=== PATIENT | female | born 1960 | race Caucasian/White ===

== ENCOUNTER 2020-03-01 21:53 | Emergency (ER) | payer BC ==
[~2020-03-01] VITALS: Ht 170.2 cm; Wt 63.0 kg
--- NOTE | 2020-03-01 22:04 | PHYS DOC ---
Past Medical History Past Medical History: No Pertinent History Past Surgical History: Cholecystectomy Drug Use: None General Adult EDM: Chief Complaint: NAUSEA/VOMITING/DIARRHA HPI: HPI: Patient is a 59 year old female who was in her normal state of health when she ate dinner at 630 tonight about an hour later she started having nausea and vomiting. No blood in her vomit. Patient then had diffuse abdominal cramping that is currently 6 out of 10 in intensity. The pain is described as cramping and nonradiating worse with palpation. Patient denies any fever chills cough diarrhea or exposure to COVID-19. Patient given for Zofran prior to arrival via EMS and is feeling somewhat better. Review of Systems: Review of Systems: Constitutional: Denies fever or chills. [] Eyes: Denies change in visual acuity. [] HENT: Denies nasal congestion or sore throat. [] Respiratory: Denies cough or shortness of breath. [] Cardiovascular: Denies chest pain or edema. [] GI: Complains abdominal pain, nausea vomiting but no diarrhea : Denies dysuria. [] Musculoskeletal: Denies back pain or joint pain. [] Integument: Denies rash. [] Neurologic: Denies headache, focal weakness or sensory changes. [] Endocrine: Denies polyuria or polydipsia. [] Lymphatic: Denies swollen glands. [] Psychiatric: Denies depression or anxiety. [] Heart Score: Risk Factors: Risk Factors: DM, Current or recent (<one month) smoker, HTN, HLP, family history of CAD, obesity. Risk Scores: Score 0 - 3: 2.5% MACE over next 6 weeks - Discharge Home Score 4 - 6: 20.3% MACE over next 6 weeks - Admit for Clinical Observation Score 7 - 10: 72.7% MACE over next 6 weeks - Early Invasive Strategies Physical Exam: PE: Constitutional: Well developed, well nourished, no acute distress, non-toxic appearance. [] HENT: Normocephalic, atraumatic, bilateral external ears normal, no trismus, nose normal. [] Eyes: PERRLA, EOMI, conjunctiva normal, no discharge. [] Neck: Normal range of motion, no tenderness, supple, no stridor. [] Cardiovascular:Heart rate regular rhythm, no murmur [] peripheral pulses intact cap refill brisk Lungs & Thorax: Bilateral breath sounds clear to auscultation [] Abdomen: Soft with diffuse tenderness to palpation without guarding or rebound, no masses, no pulsatile masses. [] Skin: Warm, dry, no erythema, no rash. [] Back: No tenderness, no CVA tenderness. [] Extremities: No tenderness, no cyanosis, no clubbing, ROM intact, no edema. [] Neurologic: Alert and oriented X 3, normal motor function, normal sensory function, no focal deficits noted. [] Psychologic: Affect normal, judgement normal, mood normal. [] Current Patient Data: Labs: Laboratory Tests Test 03/01/20 22:15 White Blood Count 11.4 x10^3/uL Red Blood Count 4.62 x10^6/uL Hemoglobin 13.9 g/dL Hematocrit 40.5 % Mean Corpuscular Volume 88 fL Mean Corpuscular Hemoglobin 30 pg Mean Corpuscular Hemoglobin Concent 34 g/dL Red Cell Distribution Width 13.7 % Platelet Count 254 x10^3/uL Neutrophils (%) (Auto) 83 % Lymphocytes (%) (Auto) 13 % Monocytes (%) (Auto) 3 % Eosinophils (%) (Auto) 1 % Basophils (%) (Auto) 1 % Neutrophils # (Auto) 9.5 x10^3/uL Lymphocytes # (Auto) 1.5 x10^3/uL Monocytes # (Auto) 0.3 x10^3/uL Eosinophils # (Auto) 0.1 x10^3/uL Basophils # (Auto) 0.1 x10^3/uL Sodium Level 140 mmol/L Potassium Level 3.4 mmol/L Chloride Level 103 mmol/L Carbon Dioxide Level 28 mmol/L Anion Gap 9 Blood Urea Nitrogen 20 mg/dL Creatinine 1.1 mg/dL Estimated GFR (Cockcroft-Gault) 51.0 BUN/Creatinine Ratio 18 Glucose Level 104 mg/dL Calcium Level 9.6 mg/dL Total Bilirubin 0.2 mg/dL Aspartate Amino Transf (AST/SGOT) 13 U/L Alanine Aminotransferase (ALT/SGPT) 17 U/L Alkaline Phosphatase 80 U/L Total Protein 8.2 g/dL Albumin 4.3 g/dL Albumin/Globulin Ratio 1.1 Lipase 143 U/L Current Medications Medications (Trade) Dose Ordered Sig/Mandy Route PRN Reason Start Time Stop Time Status Last Admin Dose Admin Sodium Chloride 1,000 ml @ 1,000 mls/hr Q1H IV 03/01/20 22:30 03/01/20 23:29 DC 03/01/20 23:16 Ondansetron HCl (Zofran) 4 mg 1X ONCE IVP 03/01/20 22:30 03/01/20 22:31 DC 03/01/20 23:16 Dicyclomine HCl (Bentyl) 20 mg 1X ONCE IM 03/01/20 22:30 03/01/20 22:31 DC 03/01/20 23:16 Iohexol (Omnipaque 300 Mg/ml) 60 ml 1X ONCE IV 03/01/20 23:00 03/01/20 23:01 DC 03/01/20 22:58 Info (CONTRAST GIVEN -- Rx MONITORING) 1 each PRN DAILY PRN MC SEE COMMENTS 03/01/20 23:00 03/03/20 22:59 Vital Signs: Vital Signs Date Time Temp Pulse Resp B/P (MAP) Pulse Ox O2 Delivery O2 Flow Rate FiO2 03/01/20 22:30 97.9 67 16 123/78 (93) 98 Room Air 97.9 EKG: EKG: [] EKG interpreted by me normal sinus rhythm with rate of 62 normal axis normal intervals normal ST segments Radiology/Procedures: Radiology/Procedures: [][facility] [address] [place] [address] IMAGING REPORT Signed PATIENT: CHERRI SARABIA ACCOUNT: [id number] : 1960 LOCATION: ER AGE: 59 SEX: F EXAM STATUS: REG ER ORD. PHYSICIAN: IDALIA SANCHES MD REASON: ABD PAIN PROCEDURE: CT ABD PELV W/ IV CONTRST ONLY CT abdomen and pelvis with contrast PQRS statement: CT scans at this facility use dose reduction including either automated exposure control, iterative reconstructions, and /or weight based radiation dosing via mA and kV modification when appropriate to reduce radiation dose to as low as reasonably achievable. Contrast: 60 mL of opaque intravenous contrast. HISTORY: Abdominal pain. Abdomen findings: Lung bases unremarkable. Sacral canal Tarlov cysts. Lumbar disc disease. There is mild intrahepatic and extrahepatic biliary ductal dilatation likely related to cholecystectomy, the common bile duct diameter is 9 mm. Liver, pancreas, spleen, kidneys and adrenal glands are unremarkable. The appendix is negative. No obstruction or inflammatory changes in GI tract. No abdominal fluid or adenopathy. Pelvis findings: Hysterectomy. Ovaries atrophic. Pelvic phleboliths which are near the areas of the distal ureters without discrete ureteral calculi. No bladder calculi. Rectum and bones are unremarkable. No pelvic fluid or adenopathy. IMPRESSION: No acute process. Appendix is negative. See above. Electronically signed by: Abdirashid Childs MD (03/01/2020 11:11 PM) [facility] [place] DICTATED and SIGNED BY: ABDIRASHID CHILDS MD DATE: 03/01/202310 Course & Med Decision Making: Course & Med Decision Making Pertinent Labs and Imaging studies reviewed. (See chart for details) [] Patient reassessed at 11:33 PM. Patient feels much better. Abdomen is soft and nontender. Patient's work-up is reassuring. Most likely the patient has food poisoning. Patient stable for discharge. All questions answered. Return precautions given. Dragon Disclaimer: Drag[employer]ume[employer] Disclaimer: This electronic medical record was generated, in whole or in part, using a voice recognition dictation system. Departure Departure Impression: Primary Impression: Nausea and vomiting Additional Impression: Abdominal pain Disposition: 01 HOME, SELF-CARE Condition: STABLE Referrals: YOUR PCP 2-3 DAYS Patient Instructions: Enteropathogenic Escherichia coli, Food Poisoning, Nausea and Vomiting Additional Instructions: EMERGENCY DEPARTMENT GENERAL DISCHARGE INSTRUCTIONS THANK YOU for coming to [facility] Emergency Department (ED) today and trusting us with your care. We trust that you had a positive experience in our Emergency Department. If you wish to speak to the department Management you can contact the trimming department blocker at . YOUR FOLLOW UP INSTRUCTIONS ARE FOLLOWS: Do you have a private doctor? If you do not have a private doctor, please ask for a resource list of physicians or clinics that may be able to assist you with follow up care. The Emergency Physician has interpreted your x-rays. The X-ray specialist will also review them. If there is a change in the findings you will be notified in 48 hours when at all possible. A lab test or lab culture may have been done, your results will be reviewed and you will be notified if you need a change in treatment. ADDITIONAL INSTRUCTIONS AND INFORMATION Your care today has been supervised by a physician who is specially trained in emergency care. Many problems require more than one evaluation for a complete diagnosis and treatment. We recommend that you schedule your follow up appointment as recommended to ensure complete treatment of your illness or injury. If you are unable to obtain follow up care and continue to have a problem, or if your condition worsens we recommend that you return to the ED. We are not able to safely determine your condition over the phone nor are we able to give sound medical advice over the phone. For these safety reasons, if you call for medical advice we will ask you to come to the ED for further evaluation If you have any questions regarding these discharge instructions please call the ED at . SAFETY INFORMATION In the interest of safety, wellness, and injury prevention; we encourage you to wear your seatbelt, if you smoke; quit smoking, and we encourage your family to use protective helmet for bicycling and other sporting events that present an increased risk for head injury. IF YOUR SYMPTOMS WORSEN OR NEW SYMPTOMS DEVELOP, OR YOU HAVE CONCERNS ABOUT YOUR CONDITION; OR IF YOUR CONDITION WORSENS WHILE YOU ARE WAITING FOR YOUR FOLLOW UP APPOINTMENT; EITHER CONTACT YOUR PRIMARY CARE DOCTOR, THE PHYSICIAN WHOSE NAME AND NUMBER YOU WERE GIVEN, OR RETURN TO THE ED IMMEDIATELY. Scripts Ondansetron Hcl (ZOFRAN) 4 Mg Tablet 1 TAB PO Q6HRS for NAUSEA, #12 TAB Prov: IDALIA SANCHES MD 03/01/20 Justicifation of Admission Dx: Justifications for Admission: Justification of Admission Dx: N/A IDALIA SANCHES MD Mar 01, 2020 22:04
[2020-03-01 22:20] LABS: BASO # 0.1 x10^3/uL (0.0-0.2); BASO % 1 % (0-3); EOS # 0.1 x10^3/uL (0.0-0.7); EOS % 1 % (0-3); HEMATOCRIT 40.5 % (36.0-47.0); HEMOGLOBIN 13.9 g/dL (12.0-15.5); LYMPH # 1.5 x10^3/uL (1.0-4.8); LYMPH % 13 % (24-48); MEAN CORPUSCULAR HEMOGLOBIN 30 pg (25-35); MEAN CORPUSCULAR HGB CONC 34 g/dL (31-37); MEAN CORPUSCULAR VOLUME 88 fL (79-100); MONO # 0.3 x10^3/uL (0.0-1.1); MONO % 3 % (0-9); NEUT # 9.5 x10^3/uL (1.8-7.7); NEUT % 83 % (31-73); PLATELET COUNT 254 x10^3/uL (140-400); RED BLOOD COUNT 4.62 x10^6/uL (3.50-5.40); RED CELL DISTRIBUTION WIDTH 13.7 % (11.5-14.5); WHITE BLOOD COUNT 11.4 x10^3/uL (4.0-11.0)
[2020-03-01] MEDS ORDERED: IV NORMAL SALINE 1000ML BAG 1,000 ML IV SCH (22:30)
[2020-03-01] MEDS ORDERED: DICYCLOMINE 20 MG/2 ML VIAL. IM ONE (22:30)
[2020-03-01] MEDS ORDERED: ONDANSETRON PF 4 MG/2 ML VIAL. IVP ONE (22:30)
[2020-03-01 22:31] LABS: CALCIUM 9.6 mg/dL (8.5-10.1); CREATININE 1.1 mg/dL (0.6-1.0); POTASSIUM 3.4 mmol/L (3.5-5.1)
[2020-03-01 22:36] LABS: ALBUMIN 4.3 g/dL (3.4-5.0); ALBUMIN/GLOBULIN RATIO 1.1 (1.0-1.7); TOTAL BILIRUBIN 0.2 mg/dL (0.2-1.0); TOTAL PROTEIN 8.2 g/dL (6.4-8.2)
[2020-03-01] MEDS ORDERED: CONTRAST GIVEN. MC PRN (23:00)
[2020-03-01] MEDS ORDERED: IOHEXOL 300 MG/ML 100ML VIAL. IV ONE (23:00)
--- NOTE | 2020-03-01 23:14 | RAD ---
CT abdomen and pelvis with contrast PQRS statement: CT scans at this facility use dose reduction including either automated exposure control, iterative reconstructions, and /or weight based radiation dosing via mA and kV modification when appropriate to reduce radiation dose to as low as reasonably achievable. Contrast: 60 mL of opaque intravenous contrast. HISTORY: Abdominal pain. Abdomen findings: Lung bases unremarkable. Sacral canal Tarlov cysts. Lumbar disc disease. There is mild intrahepatic and extrahepatic biliary ductal dilatation likely related to cholecystectomy, the common bile duct diameter is 9 mm. Liver, pancreas, spleen, kidneys and adrenal glands are unremarkable. The appendix is negative. No obstruction or inflammatory changes in GI tract. No abdominal fluid or adenopathy. Pelvis findings: Hysterectomy. Ovaries atrophic. Pelvic phleboliths which are near the areas of the distal ureters without discrete ureteral calculi. No bladder calculi. Rectum and bones are unremarkable. No pelvic fluid or adenopathy. IMPRESSION: No acute process. Appendix is negative. See above. Electronically signed by: Julio Page MD (03/01/2020 11:11 PM) [facility]
[2020-03-01 23:30] VITALS: BP 123/78
[2020-03-01] MEDS ORDERED: ONDA4TAB7 PO (23:38)
--- NOTE | 2020-03-02 04:36 | EKG ---
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
== END 2020-03-02 00:05 | disposition home or self-care (01) ==
LOC: ER 21:53
DX: R11.2 Nausea with vomiting, unspecified (principal); R10.84 Generalized abdominal pain; Z90.49 Acquired absence of other specified parts of digestive tract
CPT/HCPCS: 36415; 74177; 80053; 83690; 85025; 93005; 96361; 96372; 96374; 99285; J0500; J2405; J7030; Q9967